=== PATIENT | male | born 1955 | race Caucasian/White ===

== ENCOUNTER → 2019-05-03 | Emergency (ER) | payer SELFPAY ==
[~2019-05-03] VITALS: Ht 170.2 cm; Wt 83.9 kg
--- NOTE | 2019-05-04 11:08 | EKG ---
[facility] [address] [place] [address] [place], [place] [address] Signed Atrial flutter T wave abnormality, consider lateral ischemia Abnormal ECG No previous ECGs available Confirmed by DESMOND NATION DO ([id number]) on 05/04/2019 11:08:19 AM Electronically Signed By: DESMOND NATION DO 05/04/19 1108 PATIENT NAME: RE DELATORRE Electrocardiogram DATE OF : 53 PHYSICIAN: DESMOND NATION DO REPORT #: [id number] REPORT IS CONFIDENTIAL AND NOT TO BE RELEASED WITHOUT AUTHORIZATION
== END ==
LOC: ED 16:02
DX: I48.92 Unspecified atrial flutter (principal); R51 Headache; Z88.1 Allergy status to other antibiotic agents
CPT/HCPCS: 70450; 80053; 84484; 85025; 93005; 93010; 96374; 96375; 96376; 99284-25; J1644